=== PATIENT | female | born 1955 | race Asian ===

== ENCOUNTER 2017-08-02 21:11 | Emergency (ER) | payer OTHER ==
[2017-08-02] MEDS ORDERED: ASPIRIN 325 MG TABLET ONE (21:25)
[2017-08-02] MEDS ORDERED: NITROGLYCERIN 0.4 MG SL TAB SL ONE (21:47)
[2017-08-02 21:55] LABS: BASOPHILS % (AUTO) 0.4 % (0.0-5.0); EOSINOPHILS % (AUTO) 1.6 % (0.0-8.0); HEMATOCRIT 32.8 % (36-48); LYMPHOCYTES % (AUTO) 35.1 % (21.0-51.0); MEAN CORPUSCULAR HEMOGLOBIN 30.8 pg (27.0-33.0); MEAN CORPUSCULAR HGB CONC 34.2 g/dL (32.0-36.0); MEAN CORPUSCULAR VOLUME 90.2 fL (79-99); MONOCYTES % (AUTO) 7.7 % (3.0-13.0); NEUTROPHILS % (AUTO) 55.2 % (40.0-77.0); PLATELET COUNT (AUTO) 199 K/uL (130-400); RED BLOOD CELL COUNT(AUTO) 3.64 MIL/uL (4.00-5.50); RED CELL DISTRIBUTION WIDTH 13.6 % (11.0-15.5); WHITE BLOOD COUNT (AUTO) 4.7 K/uL (4.8-10.8)
[2017-08-02 22:04] LABS: CARBON DIOXIDE 31 mmol/L (21-32); CHLORIDE 103 mmol/L (101-111); CREATININE 0.8 mg/dL (0.5-1.5); GLOMERULAR FILTR. RATE CALC 78 mL/min (>60); GLUCOSE,RANDOM 106 mg/dL (70-105); POTASSIUM 4.1 mmol/L (3.5-5.1); SODIUM SERUM 137 mmol/L (136-145); UREA NITROGEN, BLOOD 25 mg/dL (7-18)
[2017-08-02 22:06] LABS: INR 0.93 (0.85-1.15); PARTIAL THROMBOPLASTIN TIME 29.5 SEC (26.3-35.5); PROTHROMBIN TIME 9.8 SEC (9.6-11.6)
[2017-08-02 22:17] LABS: ALANINE AMINOTRANSFERASE 17 U/L (12-78); ALBUMIN 3.5 g/dL (3.5-5.0); ASPARTATE AMINOTRANSFERASE 14 U/L (10-37); BILIRUBIN,TOTAL 0.3 mg/dL (0.2-1.0); CREATINE KINASE MB < 0.5 ng/mL (0.5-3.6); CREATINE KINASE, TOTAL 54 U/L (21-232); MYOGLOBIN 18 ng/mL (10-92); TOTAL PROTEIN, SERUM 6.2 g/dL (6.0-8.3)
[2017-08-02] MEDS ORDERED: KETOROLAC TROMETHAMINE 30MG/ML ONE (23:33)
== END 2017-08-03 01:24 | disposition home or self-care (01) ==
LOC: EDH 21:11
DX: R07.9 Chest pain, unspecified (principal); E11.9 Type 2 diabetes mellitus without complications; E07.9 Disorder of thyroid, unspecified; Z79.899 Other long term (current) drug therapy
CPT/HCPCS: 36415; 71045; 80053; 82550; 82553; 82948; 83874; 84484 ×2; 85025; 85610; 85730; 93005 ×2; 94761; 96374; 99285; J1885

== ENCOUNTER 2018-10-22 20:15 | Emergency (ER) | payer OTHER ==
[2018-10-22 21:04] LABS: BASOPHILS % (AUTO) 0.4 % (0.0-5.0); EOSINOPHILS % (AUTO) 0.4 % (0.0-8.0); HEMATOCRIT 36.9 % (36-48); LYMPHOCYTES % (AUTO) 25.2 % (21.0-51.0); MEAN CORPUSCULAR HEMOGLOBIN 30.9 pg (27.0-33.0); MEAN CORPUSCULAR HGB CONC 33.5 g/dL (32.0-36.0); MEAN CORPUSCULAR VOLUME 92.3 fL (79-99); MONOCYTES % (AUTO) 5.2 % (3.0-13.0); NEUTROPHILS % (AUTO) 68.8 % (40.0-77.0); PLATELET COUNT (AUTO) 352 K/uL (130-400); RED BLOOD CELL COUNT(AUTO) 3.99 MIL/uL (4.00-5.50); RED CELL DISTRIBUTION WIDTH 14.3 % (11.0-15.5); WHITE BLOOD COUNT (AUTO) 7.3 K/uL (4.8-10.8)
[2018-10-22 21:06] LABS: APPEARANCE,URINE Clear (CLEAR); BILIRUBIN,URINE Negative (NEGATIVE); COLOR,URINE Yellow (YELLOW); GLUCOSE, URINE (UA) Negative (NEGATIVE); KETONES,URINE Negative (NEGATIVE); LEUKOCYTE ESTERASE ,URINE Negative (NEGATIVE); NITRATE,URINE Negative (NEGATIVE); OCCULT BLOOD,URINE Negative (NEGATIVE); PROTEIN,URINE Negative (NEGATIVE); UROBILINOGEN,URINE 0.2 mg/dL (0.2-1.0)
[2018-10-22 21:14] LABS: AMPHET/METH SCREEN,URINE NEGATIVE (NEGATIVE); BARBITURATE SCREEN, URINE NEGATIVE (NEGATIVE); BENZODIAZEPINES SCREEN,URINE NEGATIVE (NEGATIVE); CANNABINOID SCREEN,URINE NEGATIVE (NEGATIVE); COCAINE SCREEN,URINE NEGATIVE (NEGATIVE); OPIATE SCREEN,URINE NEGATIVE (NEGATIVE); PHENCYCLIDINE SCREEN,URINE NEGATIVE (NEGATIVE)
[2018-10-22 21:14] LABS: INR 0.92 (0.85-1.15); PARTIAL THROMBOPLASTIN TIME 30.4 SEC (26.3-35.5); PROTHROMBIN TIME 9.7 SEC (9.6-11.6)
[2018-10-22] MEDS ORDERED: SODIUM CHLORIDE 0.9% 1000ML 1,000 ML IV ONE (21:16)
[2018-10-22 21:20] LABS: CREATININE 0.7 mg/dL (0.5-1.5); POTASSIUM 3.8 mmol/L (3.5-5.1)
[2018-10-22 21:25] LABS: ALBUMIN 3.4 g/dL (3.5-5.0); BILIRUBIN,TOTAL 0.2 mg/dL (0.2-1.0); TOTAL PROTEIN, SERUM 6.6 g/dL (6.0-8.3)
[2018-10-22 21:27] LABS: B-TYPE NATRIURETIC PEPTIDE < 5 pg/mL (0-100)
== END 2018-10-22 23:02 | disposition home or self-care (01) ==
LOC: EDH 20:15
DX: F41.1 Generalized anxiety disorder (principal); E86.1 Hypovolemia; R51 Headache; R03.0 Elevated blood-pressure reading, without diagnosis of hypertension; R00.0 Tachycardia, unspecified; E11.9 Type 2 diabetes mellitus without complications; E03.9 Hypothyroidism, unspecified
CPT/HCPCS: 36415; 70450; 71045; 80053; 80305; 81003; 82550; 83880; 84484; 85025; 85610; 85730; 93005; 99285; J7030

== ENCOUNTER 2023-03-25 05:53 | Emergency (ER) | payer MEDICARE, OTHER ==
[~2023-03-25] VITALS: Ht 152.4 cm; Wt 54.4 kg
[~2023-03-25 05:53] MED LIST: ESOM40CA PO; EZET10TA48 PO; LEVO50CA4 PO; LORA-192 PO; PIOG30TA70 PO
[2023-03-25] MEDS ORDERED: IOHEXOL-350 75 ML VIAL IV ONE (05:54)
[2023-03-25 06:46] LABS: BASOPHILS # (AUTO) 0.01 K/uL (0.00-0.20); BASOPHILS % (AUTO) 0.3 % (0.0-5.0); EOSINOPHILS # (AUTO) 0.06 K/uL (0.00-0.70); EOSINOPHILS % (AUTO) 1.9 % (0.0-8.0); HEMATOCRIT 41.6 % (36-48); LYMPHOCYTES # (AUTO) 1.5 K/uL (1.0-4.8); LYMPHOCYTES % (AUTO) 47.6 % (21.0-51.0); MEAN CORPUSCULAR HEMOGLOBIN 31.7 pg (27.0-33.0); MEAN CORPUSCULAR HGB CONC 32.5 g/dL (32.0-36.0); MEAN CORPUSCULAR VOLUME 97.7 fL (79-99); MONOCYTES # (AUTO) 0.2 K/uL (0.1-1.0); MONOCYTES % (AUTO) 7.7 % (3.0-13.0); NEUTROPHILS # (AUTO) 1.3 K/uL (1.8-7.7); NEUTROPHILS % (AUTO) 42.5 % (40.0-77.0); PLATELET COUNT (AUTO) 180 K/uL (130-400); RED BLOOD CELL COUNT(AUTO) 4.26 MIL/uL (4.00-5.50); RED CELL DISTRIBUTION WIDTH 13.2 % (11.0-15.5); WHITE BLOOD COUNT (AUTO) 3.1 K/uL (4.8-10.8)
[2023-03-25 07:05] LABS: ALBUMIN 3.9 g/dL (3.5-5.0); BILIRUBIN,TOTAL 0.5 mg/dL (0.2-1.0); CREATININE 0.5 mg/dL (0.5-1.5); POTASSIUM 5.2 mmol/L (3.5-5.1); TOTAL PROTEIN, SERUM 7.5 g/dL (6.0-8.3)
[2023-03-25 10:40] VITALS: BP 127/65; PULSE 62; RESP 18; O2SAT 99
== END 2023-03-25 10:41 | disposition home or self-care (01) ==
LOC: EDH 05:53
DX: I82.401 Acute embolism and thrombosis of unspecified deep veins of right lower extremity (principal); R06.00 Dyspnea, unspecified; E78.00 Pure hypercholesterolemia, unspecified; E11.9 Type 2 diabetes mellitus without complications; E03.9 Hypothyroidism, unspecified
CPT/HCPCS: 99285; 71270; 71045; 84484 ×2; 80053; 83880; 85025; 36415; 93005; Q9967

== ENCOUNTER 2023-04-15 06:24 | Emergency (ER) | payer MEDICARE, OTHER ==
[~2023-04-15] VITALS: Ht 152.4 cm; Wt 54.4 kg
[2023-04-15 07:01] LABS: SARS-CoV-2, RNA, NAAT NEGATIVE SARS CoV-2 (NEGATIVE)
[2023-04-15 07:04] LABS: INFLUENZA TYPE A Negative For Type A (NEGATIVE); INFLUENZA TYPE B Negative For Type B (NEGATIVE)
[2023-04-15 08:09] LABS: BASOPHILS # (AUTO) 0.01 K/uL (0.00-0.20); BASOPHILS % (AUTO) 0.3 % (0.0-5.0); EOSINOPHILS # (AUTO) 0.05 K/uL (0.00-0.70); EOSINOPHILS % (AUTO) 1.4 % (0.0-8.0); HEMATOCRIT 38.5 % (36-48); IMMATURE GRANULOCYTE ABSOLUTE 0.01 K/uL (0-1); LYMPHOCYTES # (AUTO) 1.4 K/uL (1.0-4.8); MEAN CORPUSCULAR HEMOGLOBIN 31.8 pg (27.0-33.0); MEAN CORPUSCULAR HGB CONC 32.2 g/dL (32.0-36.0); MEAN CORPUSCULAR VOLUME 98.7 fL (79-99); MONOCYTES # (AUTO) 0.3 K/uL (0.1-1.0); MONOCYTES % (AUTO) 6.8 % (3.0-13.0); NEUTROPHILS % (AUTO) 53.2 % (40.0-77.0); PLATELET COUNT (AUTO) 177 K/uL (130-400); RED CELL DISTRIBUTION WIDTH 13.2 % (11.0-15.5); WHITE BLOOD COUNT (AUTO) 3.7 K/uL (4.8-10.8)
[2023-04-15 08:42] LABS: B-TYPE NATRIURETIC PEPTIDE 44 pg/mL (0-100)
[2023-04-15 09:17] LABS: CREATININE 0.6 mg/dL (0.5-1.5); POTASSIUM 3.8 mmol/L (3.5-5.1)
[2023-04-15 09:22] LABS: ALBUMIN 3.6 g/dL (3.5-5.0); BILIRUBIN,TOTAL 0.4 mg/dL (0.2-1.0); TOTAL PROTEIN, SERUM 6.5 g/dL (6.0-8.3)
[2023-04-15 09:39] VITALS: BP 136/64; PULSE 70; RESP 16; O2SAT 97
== END 2023-04-15 09:58 | disposition home or self-care (01) ==
LOC: EDH 06:24
DX: R06.00 Dyspnea, unspecified (principal); E11.9 Type 2 diabetes mellitus without complications; E03.9 Hypothyroidism, unspecified; E78.00 Pure hypercholesterolemia, unspecified; Z79.84 Long term (current) use of oral hypoglycemic drugs; Z79.890 Hormone replacement therapy; Z20.822 Contact with and (suspected) exposure to COVID-19
CPT/HCPCS: 36415; 71045; 80053; 83880; 84484; 85025; 87635; 87804; 93005

== ENCOUNTER → 2023-05-06 | Outpatient (CLI) | payer MEDICARE, OTHER | END | disposition home or self-care (01) | LOC: SHCH 14:48 | PROVIDERS: ATTEND Internal Medicine | DX: R94.31 Abnormal electrocardiogram [ECG] [EKG] (principal); E11.9 Type 2 diabetes mellitus without complications | CPT/HCPCS: 93306 ==

== ENCOUNTER → 2023-11-07 | Outpatient (CLI) | payer MEDICARE, OTHER | END | disposition home or self-care (01) | LOC: SHCH 15:05 | PROVIDERS: ATTEND Internal Medicine | DX: I87.2 Venous insufficiency (chronic) (peripheral) (principal); I87.1 Compression of vein; I80.203 Phlebitis and thrombophlebitis of unspecified deep vessels of lower extremities, bilateral | CPT/HCPCS: 93970 ==

== ENCOUNTER → 2024-01-08 | Outpatient (CLI) | payer MEDICARE, OTHER ==
[2024-01-08 16:57] LABS: BILIRUBIN,TOTAL 0.5 mg/dL (0.2-1.0); CREATININE 0.7 mg/dL (0.5-1.0); POTASSIUM 4.3 mmol/L (3.5-5.1); TOTAL PROTEIN, SERUM 7.2 g/dL (6.0-8.3)
== END | disposition home or self-care (01) ==
LOC: LAB 13:13
PROVIDERS: ATTEND Internal Medicine Cardiovascular Disease
DX: R94.39 Abnormal result of other cardiovascular function study (principal); R06.02 Shortness of breath
CPT/HCPCS: 36415; 80053

== ENCOUNTER → 2024-01-27 | Outpatient (CLI) | payer MEDICARE, OTHER ==
[~2024-01-27] MED LIST changes: +IOHEXOL 350 MG/ML 100ML INFUS..BTL IV ONE
== END | disposition home or self-care (01) ==
LOC: RAH 08:53
PROVIDERS: ATTEND Internal Medicine
DX: R06.02 Shortness of breath (principal); R94.39 Abnormal result of other cardiovascular function study
CPT/HCPCS: 75574; Q9967

== ENCOUNTER 2025-03-14 19:26 | Observation (INO) | payer MEDICARE, OTHER ==
[~2025-03-14] VITALS: Ht 152.4 cm; Wt 56.7 kg
[~2025-03-14 19:26] MED LIST changes: +DIPH25CA85 PO; -EZET10TA48 PO; +EZET10TA80 PO; +FAMO20TA8 PO; -IOHEXOL 350 MG/ML 100ML INFUS..BTL IV ONE; -LEVO50CA4 PO; +LEVO50CA5 PO
[2025-03-14 20:01] LABS: IMMATURE GRANULOCYTE ABSOLUTE 0.00 K/uL (0-1); NUCLEATED RED BLOOD CELLS 0.0 % (0.0-0.19); PLATELET COUNT (AUTO) 183 K/uL (130-400); RED BLOOD CELL COUNT(AUTO) 3.98 MIL/uL (4.00-5.50); RED CELL DISTRIBUTION WIDTH 13.2 % (11.0-15.5); WHITE BLOOD COUNT (AUTO) 3.9 K/uL (4.8-10.8)
[2025-03-14 20:16] LABS: RAPID GROUP A STREP negative (NEGATIVE)
[2025-03-14 20:18] LABS: SARS-CoV-2, RNA, NAAT NEGATIVE SARS CoV-2 (NEGATIVE)
[2025-03-14 20:18] LABS: CREATININE 0.6 mg/dL (0.5-1.0); GLOMERULAR FILTR. RATE CALC 97.0 mL/min (>90); GLUCOSE,RANDOM 131.0 mg/dL (70-105); SODIUM SERUM 143.0 mmol/L (136-145); UREA NITROGEN, BLOOD 17.0 mg/dL (7-18)
[2025-03-14 20:23] LABS: CREATINE KINASE, TOTAL 76.0 U/L (21-232)
--- NOTE | 2025-03-14 20:23 | ERN ---
ED Note History of Present Illness Stated Complaint: SOB, CHEST PAIN, NAUSEA Chief Complaint: Chest Pain Time Seen by MD: 20:10 Dictation: This is a 70-year-old female who presented to the emergency room with a 3 day history of shortness of breath and chest pressure. She stated that initially she did not think much of it she also had a little nausea but no heartburn indigestion. Pain is located in the mid central area without any radiation to the neck or arm. Today she went to [facility] and after she sang in the choir and on her way back home she began experiencing increasing shortness of breath with a chest discomfort she was concerned and came into the ER for further evaluation no vomitings or diarrhea. No PND orthopnea. No fever chills. The pressure comes and goes for few minutes. No relief leaning forward. She denied association of the pain with a food or breathing. She indicated that she has sees Dr. Barajas roto rooter operator who started her on Plavix for a 30% blockage in her heart. I do not have records for review at this time Temperature 97 pulse 69 respirations 18 blood pressure 142/65 with a pulse oximetry of 99% on room air Chronic medical problems include diabetes mellitus, hypercholesterolemia, hypothyroidism, history of DVT and history of right ovarian cyst Allergies: Coded Allergies: No Known Drug Allergies (Unverified Allergy, 08/12/12) Home Meds Active Scripts Famotidine (Famotidine) 20 Mg Tablet, 1 TAB PO BID for 5 Days, #10 TAB 0 Refills Prov:FARTUN HANDY MD 12/09/24 Diphenhydramine HCl (Benadryl) 25 Mg Capsule, 25 MG PO Q6HPRN for itching, #15 CAP Prov:FARTUN HANDY MD 12/09/24 Reported Medications Lorazepam (Ativan) 1 Mg Tablet, 1 MG PO [id number] PRN for ANXIETY/AGITATION, TAB 03/23/23 Levothyroxine Sodium (Levothyroxine) 50 Mcg Capsule, 50 MCG PO DAILY, CAP 03/22/23 Esomeprazole Magnesium (Nexium) 40 Mg Capsule.dr, 40 MG PO DAILY, CAP 03/22/23 Ezetimibe (Ezetimibe) 10 Mg Tablet, 10 MG PO DAILY, TAB 03/22/23 Pioglitazone HCl (Pioglitazone HCl) 30 Mg Tablet, 30 MG PO DAILY, TAB 03/22/23 Past Medical History Past Medical History: Diabetes-Type II, DVT, High Cholesterol, Hypothyroid, Other Additional Past Medical Hx: R OVARIAN CYST, UTERINE FIBROID Surgical History: None, Unknown Family History: Negative Social History: Negative, Lives with family History: Not Applicable RN Note Reviewed/Agreed w/PFSH: Yes Review of System Dictation Constitutional: Negative for fever,chills, and weight loss Eyes: Negative for injury, pain,redness, and discharge ENT: Negative for injury,pain or swelling Cardiovascular: Positive for chest pain, palpitations, and edema Respiratory: Positive for shortness of breath, denied cough, and wheezing, Abdomen/GI: Negative for abdominal pain, nausea, vomiting, diarrhea, and constipation Back: Negative for injury and pain : Negative for injury, bleeding and discharge MS/Extremity: Negative for injury and deformity Skin: Negative for rash, and discoloration Neuro: Negative for headache, weakness, numbness, tingling, and seizure Psych: Negative for suicide ideation, homicidal ideation, and hallucinations Initial Vital Sign VS Vital Signs Date Time Temp Pulse Resp B/P (MAP) Pulse Ox O2 Delivery O2 Flow Rate FiO2 03/14/25 19:28 97.0 69 18 142/65 99 Room Air 03/14/25 20:00 0 21 Physical Exam Dictation General: awake, alert, NAD Head/Face: Normocephalic, atraumatic Eyes: PERRL, EOMI, vision at baseline ENT: oral cavity clear, TMs clear, no signs of infection Neck: Trachea midline, supple, no nuchal rigidity Cardiovascular: RRR, normal S1/S2, No MRGs, no JVD Respiratory: CTAB, no respiratory distress, No rales or wheezes Abdomen: Soft, non-tender, non-distended, normal bowel sounds, no guarding or rebound. Skin: Warm, dry, normal turgor, no rash MS/Extremity: Pulses equal, no cyanosis, neurovascular intact, FROM Neuro: COAx4, GCS 15, strength 5/5, CN 2-12 intact, normal cerebellar exam, normal gait, Psych: Normal behavior, mood, and affect normal Extremities-trace edema without any palpable cords, Homans sign is negative Results (Laboratory/Radiology) Laboratory/Radiology Laboratory Tests Test 03/14/25 19:46 03/14/25 19:53 03/14/25 21:27 White Blood Count 3.9 K/uL (4.8-10.8) L Red Blood Count 3.98 MIL/uL (4.00-5.50) L Hemoglobin 12.5 g/dL (12.0-16.0) Hematocrit 39.8 % (36-48) Mean Corpuscular Volume 100.0 fL (79-99) H Mean Corpuscular Hemoglobin 31.4 pg (27.0-33.0) Mean Corpuscular Hemoglobin Concent 31.4 g/dL (32.0-36.0) L Red Cell Distribution Width 13.2 % (11.0-15.5) Platelet Count 183 K/uL (130-400) Mean Platelet Volume 10.0 fL (7.5-10.5) Immature Granulocyte % (Auto) 0.0 % (0-1) Neutrophils (%) (Auto) 51.2 % (40.0-77.0) Lymphocytes (%) (Auto) 36.7 % (21.0-51.0) Monocytes (%) (Auto) 8.7 % (3.0-13.0) Eosinophils (%) (Auto) 3.1 % (0.0-8.0) Basophils (%) (Auto) 0.3 % (0.0-5.0) Neutrophils # (Auto) 2.0 K/uL (1.8-7.7) Lymphocytes # (Auto) 1.4 K/uL (1.0-4.8) Monocytes # (Auto) 0.3 K/uL (0.1-1.0) Eosinophils # (Auto) 0.12 K/uL (0.00-0.70) Basophils # (Auto) 0.01 K/uL (0.00-0.20) Absolute Immature Granulocyte (auto 0.00 K/uL (0-1) Nucleated Red Blood Cells 0.0 % (0.0-0.19) Sodium Level 143 mmol/L (136-145) Potassium Level 4.6 mmol/L (3.5-5.1) Chloride Level 105 mmol/L (101-111) Carbon Dioxide Level 34 mmol/L (21-32) H Blood Urea Nitrogen 17 mg/dL (7-18) Creatinine 0.6 mg/dL (0.5-1.0) Glomerular Filtration Rate Calc 97 mL/min (>90) Random Glucose 131 mg/dL (70-105) H Total Calcium 9.4 mg/dL (8.5-10.1) Total Creatine Kinase 76 U/L (21-232) # Troponin I High Sensitivity 6 ng/L (4-50) Influenza Type A Antigen Negative For Type A Influenza Type B Antigen Negative For Type B SARS-CoV-2, RNA, NAAT NEGATIVE SARS CoV-2 Group A Streptococcus Rapid negative (NEGATIVE) Urine Color LIGHT-YELLOW (YELLOW) Urine Appearance CLEAR (CLEAR) Urine pH 6.0 (5.0-8.0) Urine Specific [place] 1.018 (1.001-1.031) Urine Protein NEGATIVE mg/dL (NEGATIVE) Urine Glucose (UA) NEGATIVE mg/dL (NEGATIVE) Urine Ketones NEGATIVE mg/dL (NEGATIVE) Urine Occult Blood NEGATIVE (NEGATIVE) Urine Nitrate NEGATIVE (NEGATIVE) Urine Bilirubin NEGATIVE mg/dL (NEGATIVE) Urine Urobilinogen 0.2 mg/dL (0.2-1.0) Urine Leukocyte Esterase NEGATIVE Colt/uL Labs Reviewed?: Yes EKG Comment: Twelve lead EKG done on 03/14/2025 at 7:34 p.m. showed a heart rate of 65, AL interval 171, QRS duration 78, QT/QTC 403/419. Impression normal sinus rhythm with nonspecific ST-T changes but no acute ST-T elevations or deep ST depressions seen. Evidence of negative P in V1 suggestive of left atrial enlargement. Interpreted by ER MD Dr. Pruett X-RAY Comment: REASON: CHEST PAIN ORDERING PHYSICIAN: YOSELYN PRUETT MD PROCEDURE: CXR1VW - CHEST 1VW EXAM: CR Chest, 1 View. CLINICAL HISTORY: CHEST PAIN. COMPARISON: None provided. FINDINGS: LUNGS: The lungs show no infiltrate or other acute finding. PLEURAL SPACES: No pleural effusion or pneumothorax. MEDIASTINUM: The cardiomediastinal silhouette is within normal limits. BONES: No aggressive appearing osseous lesion. IMPRESSION: No acute cardiopulmonary pathology is evident. /[place] DICTATED BY: ELI RAMOS Jr., MD DATE: 03/14/252202 ELECTRONICALLY SIGNED BY: ELI RAMOS Jr., MD DATE: 03/14/252202 ED Course ED Course Orders Procedure Category Date Status Time Vital Signs Per CPOE 03/14/25 Transmitted Routine 19:30 Chest 1vw RAD 03/14/25 Resulted 19:30 12 Lead Ekg Tracing- EKG 03/14/25 Logged Technical 19:30 Oxygen By Nc/Pulse Ox CPOE 03/14/25 Transmitted 19:30 Maintain Iv CPOE 03/14/25 Transmitted 19:30 Iv Insertion CPOE 03/14/25 Transmitted 19:30 Cardiac Monitoring CPOE 03/14/25 Transmitted 19:30 Pulse Oximetry With CPOE 03/14/25 Transmitted Vs And Prn 19:30 Cbc With Differential LAB 03/14/25 Complete 19:30 Activity: Br W/Brp CPOE 03/14/25 Transmitted With Assist 19:30 Creatine Kinase, Total LAB 03/14/25 Complete 19:30 Troponin I High LAB 03/14/25 Complete Sensitivity 19:30 Urinalysis Profile LAB 03/14/25 Complete 19:30 Basic Metabolic Panel LAB 03/14/25 Complete 19:30 Covid Rna Naat LAB 03/14/25 Complete 19:49 Influenza Type A & B, LAB 03/14/25 Complete Rapid 19:49 Rapid (Group A Strep) LAB 03/14/25 Complete 19:49 Edm Admit Bridge Order ADM 03/14/25 Transmitted 21:55 Vital Signs Date Time Temp Pulse Resp B/P (MAP) Pulse Ox O2 Delivery O2 Flow Rate FiO2 03/14/25 20:00 97.3 68 16 122/52 97 Room Air* 0 21 03/14/25 19:28 97.0 69 18 142/65 99 Room Air HEART Score Response (Comments) Value History: Moderate suspicion (+1) 1 EKG: Repolarization changes 1 Age: > 65yrs (+2) 2 Initial Troponin: Normal limit (0) 0 HEART Score Risk: Low Risk for MACE (1-3) Total 4 Medical Decision Making MDM Differential diagnosis: Angina, ACS Esophagitis, gastroesophageal reflux disease, hiatal hernia, gastritis, pericarditis, costochondritis, pleurisy, pulmonary embolus This is a 70-year-old female who presented to the emergency room with a 3 day history of shortness of breath and chest pressure. She stated that initially she did not think much of it she also had a little nausea but no he artburn indigestion. Pain is located in the mid central area without any radiation to the neck or arm. Today she went to [facility] and after she sang in the choir and on her way back home she began experiencing increasing shortness of breath with a chest discomfort she was concerned and came into the ER for further evaluation no vomitings or diarrhea. No PND orthopnea. No fever ch ills. The pressure comes and goes for few minutes. No relief leaning forward. She denied association of the pain with a food or breathing. She indicated that she has sees Dr. Barajas roto rooter operator who started her on Plavix for a 30% blockage in her heart. I do not have records for review at this time Temperature 97 pulse 69 respirations 18 blood pressure 142/65 with a pulse o ximetry of 99% on room air Chronic medical problems include diabetes mellitus, hypercholesterolemia, hypothyroidism, history of DVT and history of right ovarian cyst 8:23 p.m. labs reviewed CBC showed a white count of 3.9 hemoglobin 12.5 platelets 183. BNP 7 is significant for a bicarbonate of 34 BUN and creatinine are 17 and 0.6 troponins are 6. Nasopharyngeal swabs for COVID influenza and strep were negative. I went over all the labs chest x-ray findings which is unremarkable and has a postmenopausal woman with a diabetes and multiple risk factors and known evidence of coronary artery disease, with the worsening symptoms, I recommended admission to the hospital for further management. Although hesitant initially she is agreeable. Please note that the patient's Wells score is only 1.5 points with a low clinical index of suspicion for VTE 9:50 p.m. patient accepted by Erich Lopez, mid-level provider for [facility] for admission and further management Rationale: Tests considered and ordered secondary to shared decision making include: labs, ECG and radiology Previous outside records reviewed: Old ER visits. Risk of complication and/or morbidity or mortality of patient management: None Medications-Per medication reconciliation Need for hospitalization: Patient does meet criteria for hospitalization. Need for emergency major/minor surgery: No There are no social concerns with this patient. Prescription drug management Prescriptions will include symptomatic care Patient's prior external medical records from other ER visits were reviewed by me as indicated. Prior testing and results from previous visits were reviewed. Prior tests were taken into account with medical decision making and resource utilization, independent historian/historians were used to obtain complete medical history. I independently interpreted the test that were performed, results were reviewed by me and considered findings on radiology if ordered. Medical management and examination interpretation discussions were had by me with other qualified healthcare professionals as indicated for the patient's care. Problem List Problem List: (1) Unstable angina (2) Diabetes mellitus (3) Hypercholesterolemia (4) Dyspnea DX & DISP Disposition: Inpatient Decision to Admit Time: 22:10 Departure Impression: Primary Impression: Unstable angina Additional Impressions: Diabetes mellitus, Hypercholesterolemia Condition: Stable Additional Instructions: Patient was informed of all the diagnostic labs and procedures conducted in the emergency room today and demonstrated understanding of the results. I personally reviewed and interpreted all the diagnostic exams performed in the ER today. The patient will be admitted to the hospital for further treatment and evaluation. Disposition-admit to facility Condition-stable/guarded Course-uncertain at this time Pain status-decreased Assessment-exam unchanged Admission Certification- I certify that the patients status is appropriate and is based on my best clinical judgment and the patient's condition as documented in the medical records Referrals: VALENTINE VALENTIN (PCP) YOSELYN PRUETT MD Mar 14, 2025 20:23
[2025-03-14 20:31] LABS: INFLUENZA TYPE A Negative For Type A (NEGATIVE); INFLUENZA TYPE B Negative For Type B (NEGATIVE)
--- NOTE | 2025-03-14 21:04 | HMCIMG ---
EXAM: CR Chest, 1 View. CLINICAL HISTORY: CHEST PAIN. COMPARISON: None provided. FINDINGS: LUNGS: The lungs show no infiltrate or other acute finding. PLEURAL SPACES: No pleural effusion or pneumothorax. MEDIASTINUM: The cardiomediastinal silhouette is within normal limits. BONES: No aggressive appearing osseous lesion. IMPRESSION: No acute cardiopulmonary pathology is evident. /[place]
[2025-03-14 21:56] LABS: APPEARANCE,URINE CLEAR (CLEAR); GLUCOSE, URINE (UA) NEGATIVE (NEGATIVE); LEUKOCYTE ESTERASE ,URINE NEGATIVE Leu/uL (NEGATIVE); NITRATE,URINE NEGATIVE (NEGATIVE); OCCULT BLOOD,URINE NEGATIVE (NEGATIVE)
[2025-03-14 21:57] LABS: ADD UA MICROSCOPIC NO
[2025-03-14] MEDS ORDERED: LACTULOSE 20 GM/30 ML UDCUP PO PRN (22:00)
[2025-03-14] MEDS ORDERED: NITROGLYCERIN 0.4 MG SL TAB SL PRN (22:00)
--- NOTE | 2025-03-14 22:06 | HP ---
History of Present Illness Reason for Visit: Chest pain History of Present Illness Ms. Urrutia is a 70-year-old female that was seen and examined today on 03/14/2025. Patient reports that she came to the emergency department with a chief complaint of chest pain. Onset was three days ago. Location is midsternal. Duration is on and off. Character is described as pressure. There was no alleviating factors. Symptoms are aggravated with the singing in the choir. Patient reports associated shortness of breath during episodes of chest pain. Today in the emergency department labs are unremarkable. Emergency room physician recommended patient be admitted with a diagnosis of chest pain. Past Medical History PAST MEDICAL HISTORY: [ ] Diabetes mellitus type 2 Hyperlipidemia Hypothyroidism PAST SURGICAL HISTORY: [ ] Denies PAST SOCIAL HISTORY: [ ] Denies smoking tobacco, denies alcohol intake, denies illicit drug use. Review of Systems General: No Fever, No Chills, No Night Sweats, No Fatigue, No Malaise, No Appetite, No Other HEENT: No Head Aches, No Visual Changes, No Eye Pain, No Ear Pain, No Dysphasia, No Sinus Congestion, No Post Nasal Drip, No Sore Throat, No Other Pulmonary: Dyspnea; No Cough, No Pleuritic Chest Pain, No Other Cardiovascular: Chest Pain; No: Palpitations, Orthopnea, Paroxysmal Noc. Dyspnea, Edema, Lt Headedness, Other Gastrointestinal: No: Nausea, Vomiting, Abdominal Pain, Diarrhea, Constipation, Melena, Hematochezia, Other Genitourinary: No Dysuria, No Frequency, No Incontinence, No Hematuria, No Retention, No Other Musculoskeletal: No: other, neck pain, shoulder pain, arm pain, back pain, hand pain, leg pain, foot pain Skin: No Urticaria, No Rash, No Other Neurological: No: Weakness, Numbness, Incoordination, Change in speech, Confusion, Seizures, Other Allergies: Coded Allergies: No Known Drug Allergies (Unverified Allergy, 08/12/12) Scheduled Diphenhydramine HCl (Benadryl), 25 MG PO Q6HPRN Esomeprazole Magnesium (Nexium), 40 MG PO DAILY, (Reported) Ezetimibe (Ezetimibe), 10 MG PO DAILY, (Reported) Famotidine (Famotidine), 1 TAB PO BID Levothyroxine Sodium (Levothyroxine), 50 MCG PO DAILY, (Reported) Pioglitazone HCl (Pioglitazone HCl), 30 MG PO DAILY, (Reported) Scheduled PRN Lorazepam (Ativan), 1 MG PO [id number] PRN for ANXIETY/AGITATION, (Reported) Exam Vital Signs Vital Signs Date Time Temp Pulse Resp B/P (MAP) Pulse Ox O2 Delivery O2 Flow Rate FiO2 03/14/25 20:00 97.3 68 16 122/52 97 Room Air* 0 21 General Appearance: Alert, Oriented X3, Cooperative, No acute distress HEENT: Atraumatic, EOMI Respiratory: Clear to auscultation, Normal air movement, NL respiratory effort Cardiovascular: Regular rate, Regular rhythm, Normal S1, Normal S2 Abdominal: Normal bowel sounds, Soft, No tenderness Extremities: No edema Skin: No significant lesion Neuro: Normal gait, Normal speech, Strength at 5/5 X4 ext, Sensation intact, Cranial nerves 3-12 NL Psych/Mental Status: Mental status NL, Mood NL, Thoughts/Content NL Assessment/Plan ASSESSMENT: [ Chest pain, POA Diabetes mellitius type2 Hypertension Hypothyroidism] PLAN: [ Admit patient to medical floor as inpatient status. Place patient on telemetry monitoring. Aspirin 162 mg by mouth times 1 Aspirin 81 mg by mouth once daily Nitroglycerin sublingual 0.4 mg as needed for chest pain every 5 minutes, max 3 doses, hold for systolic blood pressure less than 100 mmHg. Consider consulting Cardiology if any uptrending troponin or uncontrolled chest pain Trend troponin every 6 hours x3 sets Supplemental oxygen to maintain O2 saturation greater 92%. Check glucometer a.c. and HS One thousand eight hundred ADA diet Check hemoglobin A1c in a.m. Humulin R sliding scale Consider resuming home medications once they have been reconciled. Time of admission home medications not been reconciled. For now: Hydralazine 10 mg IV every 4 hours for systolic blood pressure greater than 160 mmHg Atorvastatin 40 mg by mouth once daily GI prophylaxis, famotidine DVT prophylaxis, Lovenox ADVANCED CARE PLANNING 1. Which of the following were discussed? Hospice Care - Yes Therapeutic options - yes Advance Directives - Yes - Other discussions - patient wishes to remain a full code at this time 2. Discussed with who? Patient 3. Voluntary nature of this service was explained to the patient? Yes 4. Amount of time spent - ___16 minutes____ 5. Reviewed by Physician? (if this service was performed by NPP) Yes This document was generated in part using voice recognition software, occasional wrong word or sound alike substitutions may have occurred due to the inherent limitations of voice recognition software. Read the chart carefully and recognize using context, where the substitutions have occurred. Although every effort was made to edit the content, press operator meat and typing errors may occur ATTESTATION BY PHYSICIAN I have seen and examined the patient. I reviewed the documentation, medical decision making, and treatment plan as noted by the mid-level provider above. I agree with the findings and plan of care. ] ARTURO HER [facility] Mar 14, 2025 22:06
[2025-03-14] MEDS: ASPIRIN 81MG CHEW TAB PO ONE (22:36)
[2025-03-15 02:35] LABS: IMMATURE GRANULOCYTE ABSOLUTE 0.00 K/uL (0-1); NUCLEATED RED BLOOD CELLS 0.0 % (0.0-0.19); PLATELET COUNT (AUTO) 177 K/uL (130-400); RED BLOOD CELL COUNT(AUTO) 3.76 MIL/uL (4.00-5.50); RED CELL DISTRIBUTION WIDTH 13.2 % (11.0-15.5); WHITE BLOOD COUNT (AUTO) 3.4 K/uL (4.8-10.8)
[2025-03-15 02:59] LABS: CREATININE 0.4 mg/dL (0.5-1.0); GLOMERULAR FILTR. RATE CALC 107.0 mL/min (>90); GLUCOSE,RANDOM 122.0 mg/dL (70-105); PHOSPHORUS 4.1 mg/dL (2.5-4.9); SODIUM SERUM 142.0 mmol/L (136-145); UREA NITROGEN, BLOOD 14.0 mg/dL (7-18)
--- NOTE | 2025-03-15 07:30 | NUR ---
PT STATES SHE WANTS TO GO HOME SOON POSSIBLE SHE FEELS BETTER.
--- NOTE | 2025-03-15 07:39 | EKG ---
[facility] Test Date: 2025-03-14 Test Time: 19:34:51 Pat Name: ANGELES KIMBALL Department: [facility]IP Room: ED 17 Gender: F Lathe Operator: [id number] : [id number] Requested By: YOSELYN BROOKS Order Number: [id number] Reading MD: Ravinder Garsia Measurements Intervals [place] Rate: 65 P: 46 MD: 171 QRS: 6 QRSD: 78 T: -2 QT: 403 QTc: 419 Interpretive Statements Sinus rhythm Probable left atrial enlargement Compared to ECG 04/15/2023 06:34:26 No significant changes Electronically Signed On 03-15-2025 20:08:49 [employer]IDENTIAL SALES by Ravinder Garsia Please click the below link to view image of tracing.
[2025-03-15] MEDS: ASPIRIN 81 MG EC TAB PO SCH (09:00)
[2025-03-15] MEDS: FAMOTIDINE 20MG TAB PO SCH (09:00)
[2025-03-15] MEDS: ENOXAPARIN SODIUM 40 MG/0.4 ML SYRINGE SQ SCH (09:00)
--- NOTE | 2025-03-15 09:00 | NUR ---
PT TOOK HER HOME MEDICATIONS
[2025-03-15] MEDS ORDERED: CLOP75TA32 PO (10:01)
[2025-03-15] MEDS ORDERED: ERGO500093 PO (10:01)
--- NOTE | 2025-03-15 10:02 | NUR ---
MED REC DONE
--- NOTE | 2025-03-15 10:20 | PN ---
[facility] PROGRESS NOTE Date of Service: Mar 15, 2025 Time of Service: 10:17 SUBJECTIVE: [ ] Patient reports that she came to the emergency department with a chief complaint of chest pain. Onset was three days ago. Location is midsternal. Duration is on and off. Character is described as pressure. There was no alleviating factors. Symptoms are aggravated with the singing in the choir. Patient reports associated shortness of breath during episodes of chest pain. Today in the emergency department labs are unremarkable. Emergency room physician recommended patient be admitted with a diagnosis of chest pain REVIEW OF SYSTEMS CONSTITUTIONAL: Denies fevers, chills, or night sweats. No unintentional weight loss reported. NEUROLOGICAL: Denies headache, amaurosis fugax, motor weakness, sensory deficit, vertigo/spinning sensation, gait abnormalities, or tremors. ENT: No hearing loss, otalgia, otorrhea, rhinitis, rhinorrhea, hoarseness, or sore throat. CARDIOVASCULAR: Denies any exertional angina, dyspnea on exertion, orthopnea, paroxysmal nocturnal dyspnea, palpitations, life-threatening arrhythmias, claudication. PULMONARY: Denies any shortness of breath, cough, phlegm/sputum, hemoptysis, pleuritic chest pain. SLEEP: Denies morning headaches, daytime somnolence or napping. Denies difficulty falling asleep, staying asleep, waking from sleep. Denies knowledge of snoring. GASTROINTESTINAL: Denies any type of dysphagia to either liquids or solids. Denies nausea, vomiting, pyrosis, early satiety, abdominal pain, diarrhea, constipation, or changes in stool consistency or caliber. Denies coffee-ground emesis, hematemesis, hematochezia, or melanotic stools. GENITOURINARY: Denies frequency, urgency, nocturia, hematuria or incontinence (Storage/Irritative symptoms.) Low urinary stream, straining to void, urinary intermittency or hesitancy, splitting of the voiding stream, terminal dribbling. ENDOCRINOLOGIC: Denies polyuria, polydipsia, polyphagia or heat/cold intolerances. HEMATOLOGIC: Denies thrombophilia/previous clots, or coagulopathy/bleeding disorders. ONCOLOGIC: Denies personal history of malignancy. DERMATOLOGIC: Denies rashes or pruritus. PSYCHIATRIC: Denies any suicidal or homicidal ideation. Denies hallucinations. PHYSICAL EXAM GENERAL APPEARANCE: The patient is awake, alert, and oriented, in no acute cardiopulmonary distress. NEUROLOGICAL: Cranial nerves II-XII grossly intact. Motor is 5/5 in bilateral upper and lower extremities proximal to distal. No sensory deficits. HEENT: Face is symmetric. Pupils are equal and reactive. Extraocular movements are intact. NECK: Supple. No JVD. No thyromegaly. No submental, submandibular, pre- /postauricular, occipital or supraclavicular lymphadenopathy. CHEST: Normal chest expansion. No Telemetry. LUNGS: Absence of any rales, rhonchi or any wheezing. CARDIOVASCULAR: Regular. S1 and S2 normal. No appreciable rubs, murmurs or gallops. ABDOMEN: Soft, nontender, and nondistended. There is no rebound, voluntary gu arding, or rigidity. : Deferred. No Mckay. EXTREMITIES: Non-edematous and not cyanotic. No clubbing. Good capillary refill. SKIN: No skin breakdown. Vital Signs (last 8hr) Date Time Temp Pulse Resp B/P (MAP) Pulse Ox O2 Delivery O2 Flow Rate FiO2 03/15/25 07:15 98.1 61 16 123/56 97 Room Air* 0 21 03/15/25 06:30 97.9 65 16 137/64 98 Room Air* 0 21 03/15/25 05:21 97.9 72 16 132/50 99 Room Air* 0 21 LABS: Laboratory: Test 03/15/25 08:20 03/15/25 07:28 03/15/25 02:29 03/14/25 21:27 Range/Units Whole Blood Glucose 148 H 70-110 MG/DL Troponin I High Sensitivity 6 4-50 ng/L White Blood Count 3.4 L 4.8-10.8 K/uL Red Blood Count 3.76 L 4.00-5.50 MIL/uL Hemoglobin 12.0 12.0-16.0 g/dL Hematocrit 37.1 36-48 % Mean Corpuscular Volume 98.7 79-99 fL Mean Corpuscular Hemoglobin 31.9 27.0-33.0 pg Mean Corpuscular Hemoglobin Concent 32.3 32.0-36.0 g/dL Red Cell Distribution Width 13.2 11.0-15.5 % Platelet Count 177 130-400 K/uL Mean Platelet Volume 10.2 7.5-10.5 fL Immature Granulocyte % (Auto) 0.0 0-1 % Neutrophils (%) (Auto) 40.5 40.0-77.0 % Lymphocytes (%) (Auto) 46.9 21.0-51.0 % Monocytes (%) (Auto) 9.4 3.0-13.0 % Eosinophils (%) (Auto) 2.9 0.0-8.0 % Basophils (%) (Auto) 0.3 0.0-5.0 % Neutrophils # (Auto) 1.4 L 1.8-7.7 K/uL Lymphocytes # (Auto) 1.6 1.0-4.8 K/uL Monocytes # (Auto) 0.3 0.1-1.0 K/uL Eosinophils # (Auto) 0.10 0.00-0.70 K/uL Basophils # (Auto) 0.01 0.00-0.20 K/uL Absolute Immature Granulocyte (auto 0.00 0-1 K/uL Nucleated Red Blood Cells 0.0 0.0-0.19 % Sodium Level 142 136-145 mmol/L Potassium Level 4.5 3.5-5.1 mmol/L Chloride Level 107 101-111 mmol/L Carbon Dioxide Level 30 21-32 mmol/L Blood Urea Nitrogen 14 7-18 mg/dL Creatinine 0.4 L 0.5-1.0 mg/dL Glomerular Filtration Rate Calc 107 >90 mL/min Random Glucose 122 H 70-105 mg/dL Total Calcium 9.0 8.5-10.1 mg/dL Phosphorus Level 4.1 2.5-4.9 mg/dL Magnesium Level 2.00 1.80-2.40 mg/dL Thyroid Stimulating Hormone (TSH) 4.18 #H 0.36-3.74 uIU/mL Urine Color LIGHT-YELLOW YELLOW Urine Appearance CLEAR CLEAR Urine pH 6.0 5.0-8.0 Urine Specific [place] 1.018 1.001-1.031 Urine Protein NEGATIVE NEGATIVE mg/dL Urine Glucose (UA) NEGATIVE NEGATIVE mg/dL Urine Ketones NEGATIVE NEGATIVE mg/dL Urine Occult Blood NEGATIVE NEGATIVE Urine Nitrate NEGATIVE NEGATIVE Urine Bilirubin NEGATIVE NEGATIVE mg/dL Urine Urobilinogen 0.2 0.2-1.0 mg/dL Urine Leukocyte Esterase NEGATIVE NEGATIVE Colt/uL Test 03/14/25 19:53 03/14/25 19:46 Range/Units Influenza Type A Antigen Negative For Type A NEGATIVE Influenza Type B Antigen Negative For Type B NEGATIVE SARS-CoV-2, RNA, NAAT NEGATIVE SARS CoV-2 NEGATIVE Group A Streptococcus Rapid negative NEGATIVE Hemoglobin A1c 5.7 4.0-6.0 % Estimated Average Glucose (eAG) 117 70-126 mg/dL Total Creatine Kinase 76 # 21-232 U/L Current Medications Medications (Trade) Dose Ordered Sig/Anna Route PRN Reason Start Time Stop Time Status Last Admin Dose Admin Acetaminophen (TYLenol 325MG TAB) 650 mg Q6H PRN PO TEMPERATURE GREATER THAN 101.5 03/14/25 22:00 04/13/25 21:59 Aspirin (Aspirin 81mg Ec Tab) 81 mg DAILY PO 03/15/25 09:00 04/14/25 08:59 Atorvastatin Calcium (LIPItor 40MG) 40 mg HS PO 03/15/25 21:00 04/14/25 20:59 Enoxaparin Sodium (Lovenox) 40 mg DAILY SQ 03/15/25 09:00 04/14/25 08:59 Famotidine (Pepcid 20mg Tab) 20 mg DAILY PO 03/15/25 09:00 04/14/25 08:59 Hydralazine HCl (APRESOLine 20MG INJ) 10 mg Q6H PRN IV For:SBP above 160;DBP above 90 03/14/25 22:00 04/13/25 21:59 Insulin Human Regular (humuLIN R 100 UNIT/ML 3ML) INSULIN SLIDING SCAL... ACHS SQ 03/15/25 07:30 04/14/25 07:29 Lactulose (Constulose 20gm/ 30ml Udcup) 20 gm BID PRN PO CONSTIPATION 03/14/25 22:00 04/13/25 21:59 Morphine Sulfate (morPHINE 4MG SYG) 2 mg Q4H PRN IVP SEVERE PAIN (7-10) 03/14/25 22:00 03/21/25 21:59 Nitroglycerin (Nitrostat) 0.4 mg PROTOCOL PRN SL CHEST PAIN 03/14/25 22:00 04/13/25 21:59 Ondansetron HCl (zoFRAN 4MG INJ) 4 mg Q6H PRN IV NAUSEA/VOMITING 03/14/25 22:00 04/13/25 21:59 DIAGNOSTICS / RADIOLOGY: [ ] ASSESSMENT: Atypical Chest pain, POA Diabetes mellitius type2 Hypertension Hypothyroidism PLAN: [ ] ADVANCED CARE PLANNING 1. Which of the following were discussed? Hospice Care - Yes / No Therapeutic options - Yes / No Advance Directives - Yes / No Other discussions - 2. Discussed with who? 3. Voluntary nature of this service was explained to the patient? Yes / No 4. Amount of time spent - 5. Reviewed by Physician? (if this service was performed by NPP) Yes / No ATTESTATION BY PHYSICIAN I have seen and examined the patient. I reviewed the documentation, medical decision making, and treatment plan as noted by the mid-level provider above. I agree with the findings and plan of care. ERIN LEDESMA MD, [facility] Mar 15, 2025 10:20
--- NOTE | 2025-03-15 11:30 | NUR ---
INFORMED MAINTENANCE MECHANIC ENGINE FRANCISCO,THAT PT IS ADAMANT IN GOING HOME. Addendum: 03/15/25 at 1311 by HUI CORRECTION CAT BAILEY
--- NOTE | 2025-03-15 12:00 | DS ---
Discharge Summary Hospital Course Summary: Patient reports that she came to the emergency department with a chief complaint of chest pain. Onset was three days ago. Location is midsternal. Duration is on and off. Character is described as pressure. There was no alleviating factors. Symptoms are aggravated with the singing in the choir. Patient reports associated shortness of breath during episodes of chest pain. Today in the emergency department labs are unremarkable. Emergency room physician recommended patient be admitted with a diagnosis of chest pain 03/15/2025 no chest pain events overnight. Troponin were negative x3. Patient denies palpitation, shortness for breath, dizziness. Patient reports her staff electrical engineer's Dr Barajas has schedule her for an appointment next month. Patient is hemodynamically stable. She is on room air. During our conversation patient does not appear shortness a breath. Patient reports she will call her staff electrical engineer's and make an appointment this week. Assessment/Plan: Discharged dx's: Atypical Chest pain, POA Diabetes mellitius type2 Hypertension Hypothyroidism PLAN: ADMISSION DATE: 03/14/2025 DISCHARGE DATE: 03/15/2025 DISPOSITION: Home CONDITION: Stable STRUCTURES ASSEMBLER(S): None FOLLOW UP APPOINTMENT(S): dr Barajas 2-3 days. PROCEDURES: none IMAGING (S) report attached to summary : none MICROBIOLOGY: report attached to summary; none ACTIVITY: ab kobe HOME MEDICATIONS reviewed labs we will continue upon discharge CHANGES ON HOME MEDICATIONS none NEW MEDICATIONS none TEACHING: Emergency instructions: The patient was instructed to present to the nearest Emergency Department or call 911 should their symptoms return or worsen. Home Medications: Reported Medications Ergocalciferol (Vitamin D2) (Vitamin D2) 1,250 Mcg (19931 Unit) Capsule, 1 CAP PO QWEEK for 28 Days, #4 CAP 0 Refills 03/15/25 Clopidogrel Bisulfate (Clopidogrel) 75 Mg Tablet, 1 TAB PO DAILY for 30 Days, #30 TAB 0 Refills 03/15/25 Lorazepam (Ativan) 1 Mg Tablet, 1 MG PO [id number] PRN for ANXIETY/AGITATION, TAB 03/23/23 Levothyroxine Sodium (Levothyroxine) 50 Mcg Capsule, 50 MCG PO DAILY, CAP 03/22/23 Esomeprazole Magnesium (Nexium) 40 Mg Capsule.dr 40 MG PO DAILY, CAP 03/22/23 Ezetimibe (Ezetimibe) 10 Mg Tablet, 10 MG PO DAILY, TAB 03/22/23 Pioglitazone HCl (Pioglitazone HCl) 30 Mg Tablet, 30 MG PO DAILY, TAB 03/22/23 Discontinued Scripts Famotidine (Famotidine) 20 Mg Tablet, 1 TAB PO BID for 5 Days, #10 TAB 0 Refills Prov:FARTUN HANDY MD 12/09/24 Diphenhydramine HCl (Benadryl) 25 Mg Capsule, 25 MG PO Q6HPRN for itching, #15 CAP Prov:FARTUN HANDY MD 12/09/24 Continued Medications: Clopidogrel Bisulfate (Clopidogrel) 75 Mg Tablet 1 TAB PO DAILY for 30 Days, #30 TAB 0 Refills Ergocalciferol (Vitamin D2) (Vitamin D2) 1,250 Mcg (09950 Unit) Capsule 1 CAP PO QWEEK for 28 Days, #4 CAP 0 Refills Esomeprazole Magnesium (Nexium) 40 Mg Capsule.dr 40 MG PO DAILY, CAP Ezetimibe (Ezetimibe) 10 Mg Tablet 10 MG PO DAILY, TAB Levothyroxine Sodium (Levothyroxine) 50 Mcg Capsule 50 MCG PO DAILY, CAP Lorazepam (Ativan) 1 Mg Tablet 1 MG PO [id number] PRN for ANXIETY/AGITATION, TAB Pioglitazone HCl (Pioglitazone HCl) 30 Mg Tablet 30 MG PO DAILY, TAB Time spent arranging discharge: 31-60 minutes ATTESTATION BY PHYSICIAN I have seen and examined the patient. I reviewed the documentation, medical decision making, and treatment plan as noted by the mid-level provider above. I agree with the findings and plan of care. ERIN LEDESMA MD, [facility] Mar 15, 2025 12:00
[2025-03-15 12:35] VITALS: BP 120/61; PULSE 65; RESP 17; TEMP 98.1; O2SAT 98
--- NOTE | 2025-03-15 12:55 | NUR ---
PT IS DISCHARGED. RECEIVED HER DC PAPERWORK, NO PRESCRIPTIONS. SHE WILL FOLLOW UP WITH DR HARRIS. PT AMBULATED TO DISCHARGE LOBBY WITH A STEADY GAIT TO WAIT FOR HER SON TO PICK HER UP.
[2025-03-16] MEDS ORDERED: EZETIMIBE 10 MG TAB PO SCH (09:00)
== END 2025-03-15 12:55 | disposition home or self-care (01) ==
LOC: EDH 19:26 → INTOOBSV 21:58 → UNDOADMOB 21:58 → EDHIP 21:58
PROVIDERS: ADMIT Internal Medicine; ATTEND Internal Medicine
DX: R07.89 Other chest pain (principal); R11.0 Nausea; R00.2 Palpitations; E11.9 Type 2 diabetes mellitus without complications; E03.9 Hypothyroidism, unspecified; E78.00 Pure hypercholesterolemia, unspecified; I10 Essential (primary) hypertension; Z79.899 Other long term (current) drug therapy; Z79.82 Long term (current) use of aspirin; Z98.890 Other specified postprocedural states; Z20.822 Contact with and (suspected) exposure to COVID-19
CPT/HCPCS: 99285; 71045; 87635; 82550; 84484 ×3; 80048 ×2; 85025 ×2; 87880; 87804 ×2; 81003; 36415 ×2; 93005; 83036; 84443; 83735; 84100; 82948; G0378; J1650